=== PATIENT | male | born 1955 | race African-American/Black ===

== ENCOUNTER 2017-04-22 08:50 | Emergency (ER) | payer MEDICAID ==
[~2017-04-22] VITALS: Ht 162.6 cm; Wt 63.0 kg
[~2017-04-22 08:50] MED LIST: ASPI-1159 PO; ATOR20TA PO
[2017-04-22 09:30] VITALS: BP 155/79
[2017-04-22] MEDS ORDERED: KETOROLAC 30MG/ML VIAL IM ONE (09:30)
== END 2017-04-22 11:59 | disposition home or self-care (01) ==
LOC: ER 09:15
DX: M79.605 Pain in left leg (principal); I10 Essential (primary) hypertension; F12.10 Cannabis abuse, uncomplicated; Z86.73 Personal history of transient ischemic attack (TIA), and cerebral infarction without residual deficits; Z79.82 Long term (current) use of aspirin
CPT/HCPCS: 73552; 73562; 96372; 99284; J1885; Z7610

== ENCOUNTER 2017-07-10 12:57 | Emergency (ER) | payer MEDICAID ==
[~2017-07-10] VITALS: Ht 175.3 cm; Wt 76.0 kg
[2017-07-10] MEDS ORDERED: IBUPROFEN 400MG TABLET PO ONE (17:45)
[2017-07-10] MEDS ORDERED: ACETAMINOPHEN 325MG TABLET PO ONE (17:45)
[2017-07-10 20:11] VITALS: BP 128/77
== END 2017-07-10 20:18 | disposition home or self-care (01) ==
LOC: ER 13:30
DX: M54.5 Low back pain (principal); M54.2 Cervicalgia; V49.88XA Car occupant (driver) (passenger) injured in other specified transport accidents, initial encounter; Y93.89 Activity, other specified; Y92.89 Other specified places as the place of occurrence of the external cause; Y99.8 Other external cause status
CPT/HCPCS: 70450; 72100; 72125; 99284

== ENCOUNTER 2018-04-13 15:44 | Emergency (ER) | payer SELFPAY ==
[~2018-04-13] VITALS: Ht 167.6 cm; Wt 68.0 kg
[2018-04-13 15:46] VITALS: BP 134/88
[2018-04-13] MEDS ORDERED: ACETAMINOPHEN 325MG TABLET PO ONE (16:15)
[2018-04-13] MEDS ORDERED: BACITRACIN ZINC OINT UDPKT TOP ONE (17:00)
== END 2018-04-13 19:08 | disposition home or self-care (01) ==
LOC: ER 15:44
DX: S01.412A Laceration without foreign body of left cheek and temporomandibular area, initial encounter (principal); S50.12XA Contusion of left forearm, initial encounter; I10 Essential (primary) hypertension; F12.10 Cannabis abuse, uncomplicated; X99.1XXA Assault by knife, initial encounter; Y93.89 Activity, other specified; Y92.89 Other specified places as the place of occurrence of the external cause; Y99.8 Other external cause status
CPT/HCPCS: 70110; 73090; 99284